=== PATIENT | female | born 1985 | race African-American/Black ===

== ENCOUNTER 2018-11-25 21:40 | Emergency (ER) | payer OTHER, SELFPAY ==
[~2018-11-25] VITALS: Ht 157.5 cm; Wt 81.6 kg
[2018-11-25 21:40] VITALS: BP 159/74
[~2018-11-25 21:40] MED LIST: BECL8.7H NS; BUDE10.2 IH; ESOM40CA PO; GABA300C18 PO; LUBI8CAP4 PO; METH10TA4 PO; OLOP2.5D OP
[2018-11-25 22:06] LABS: BILIRUBIN,URINE NEGATIVE (NEG); CLARITY,URINE CLEAR; COLOR,URINE YELLOW; NITRITE,URINE NEGATIVE (NEG); PROTEIN,URINE NEGATIVE (NEG-TRACE); UROBILINOGEN,URINE 0.2 mg/dL (0.2 mg/dL)
[2018-11-25 22:12] LABS: BASO # 0.1 x10^3/uL (0.0-0.2); BASO % 1 % (0-3); EOS # 0.1 x10^3/uL (0.0-0.7); EOS % 1 % (0-3); HEMATOCRIT 39.8 % (36.0-47.0); HEMOGLOBIN 13.2 g/dL (12.0-15.5); LYMPH # 1.5 x10^3/uL (1.0-4.8); LYMPH % 18 % (24-48); MEAN CORPUSCULAR HEMOGLOBIN 29 pg (25-35); MEAN CORPUSCULAR HGB CONC 33 g/dL (31-37); MEAN CORPUSCULAR VOLUME 88 fL (79-100); MONO # 0.7 x10^3/uL (0.0-1.1); MONO % 8 % (0-9); NEUT # 6.1 x10^3uL (1.8-7.7); NEUT % 72 % (31-73); PLATELET COUNT 313 x10^3/uL (140-400); RED BLOOD COUNT 4.51 x10^6/uL (3.50-5.40); RED CELL DISTRIBUTION WIDTH 13.5 % (11.5-14.5); WHITE BLOOD COUNT 8.4 x10^3/uL (4.0-11.0)
[2018-11-25 22:13] LABS: BARBITURATES NEG (NEG); BENZODIAZEPINES NEG (NEG); CANNABINOIDS NEG (NEG); COCAINE NEG (NEG); METHADONE NEG (NEG); OPIATES NEG (NEG); PHENCYCLIDINE NEG (NEG)
[2018-11-25 22:15] LABS: AMPHETAMINE/METHAMPHETAMINE POS (NEG)
[2018-11-25 22:19] LABS: SQUAMOUS EPITHELIAL CELL,UR FEW /LPF
[2018-11-25 22:20] LABS: CALCIUM 9.8 mg/dL (8.5-10.1); CREATININE 0.9 mg/dL (0.6-1.0); GFR 88.4; POTASSIUM 3.4 mmol/L (3.5-5.1)
[2018-11-25 22:20] LABS: BACTERIA,URINE FEW /HPF (0-FEW); RBC,URINE 0 /HPF (0-2)
[2018-11-25 22:21] LABS: HYALINE CASTS, URINE MODERATE /HPF; WBC,URINE OCC /HPF (0-4)
--- NOTE | 2018-11-26 01:19 | PHYS DOC ---
Past Medical History Past Medical History: Asthma, GERD, IBS Additional Past Medical Histor: eczema, narcolepsy, celiac Past Surgical History: Other Additional Past Surgical Histo: beth fundoplication, ankle replacement, nasal surgery, oral surgery Alcohol Use: Occasionally Drug Use: None Adult General Chief Complaint Chief Complaint: ALTERED MENTAL STATUS HPI HPI Patient is a 33 year old female presents with concern for abnormal behavior per her fianc. Patient was acting erratically earlier in the day and made statements that were concerning to her fianc. She asked her fianc if he wanted to see her kill herself. She did not threaten to kill herself or have a specific plan. Patient's fianc states that she had also drank wine earlier in the evening prior to making those statements. She reportedly, she has been under significant stress at work, at home has also been preoccupied with health concerns that she is trying to conceive. Patient has struggled with weight loss and is on phentermine and has had little's sleep in the past 2-3 days. No reported homicidal ideation, drug abuse. No prior psychiatric admissions. No significant medical illnesses.[] Review of Systems Review of Systems ROS as per HPI All other systems were reviewed and found to be within normal limits, except as documented in this note. Allergies Allergies Allergies Coded Allergies Type Severity Reaction Last Updated Verified modafinil Allergy Intermediate excessive thirst 09/25/13 Yes Physical Exam Physical Exam Constitutional: Well developed, well nourished, no acute distress, non-toxic appearance. [] HENT: Normocephalic, atraumatic, bilateral external ears normal, oropharynx moist, no oral exudates, nose normal. [] Eyes: PERRLA, EOMI, conjunctiva normal, no discharge. [] Neck: Normal range of motion, no tenderness, supple, no stridor. [] Cardiovascular:Heart rate regular rhythm, no murmur [] Lungs & Thorax: Bilateral breath sounds clear to auscultation [] Abdomen: Bowel sounds normal, soft, no tenderness. [] Skin: Warm, dry, no erythema, no rash. [] Back: No tenderness. [] Extremities: No tenderness, no cyanosis, no clubbing, ROM intact, no edema. [] Neurologic: Alert and oriented, CN 2-12, normal motor function, normal sensory function, no focal deficits noted. [] Psychologic: Affect, incongruent with mood. Bizarre and attention seeking behavior, yelling at TV, fake seizures only when examiner is in room, no HI/SI.[] Current Patient Data Vital Signs Vital Signs Date Time Temp Pulse Resp B/P (MAP) Pulse Ox O2 Delivery O2 Flow Rate FiO2 11/25/18 21:40 98.6 92 18 159/74 (102) 98 Room Air 98.6 Lab Values Laboratory Tests Test 11/25/18 21:45 11/25/18 22:00 11/25/18 22:01 11/25/18 22:14 Urine Collection Type Unknown Urine Color Yellow Urine Clarity Clear Urine pH 6.0 Urine Specific [place] 1.020 Urine Protein Negative mg/dL (NEG-TRACE) Urine Glucose (UA) Negative mg/dL (NEG) Urine Ketones (Stick) >=80 mg/dL (NEG) Urine Blood Negative (NEG) Urine Nitrite Negative (NEG) Urine Bilirubin Negative (NEG) Urine Urobilinogen Dipstick 0.2 mg/dL (0.2 mg/dL) Urine Leukocyte Esterase Negative (NEG) Urine RBC 0 /HPF (0-2) Urine WBC Occ /HPF (0-4) Urine Squamous Epithelial Cells Few /LPF Urine Bacteria Few /HPF (0-FEW) Urine Hyaline Casts Moderate /HPF Urine Mucus Mod /LPF Urine Opiates Screen Neg (NEG) Urine Methadone Screen Neg (NEG) Urine Barbiturates Neg (NEG) Urine Phencyclidine Screen Neg (NEG) Urine Amphetamine/Methamphetamine Pos (NEG) Urine Benzodiazepines Screen Neg (NEG) Urine Cocaine Screen Neg (NEG) Urine Cannabinoids Screen Neg (NEG) Urine Ethyl Alcohol Neg (NEG) White Blood Count 8.4 x10^3/uL (4.0-11.0) Red Blood Count 4.51 x10^6/uL (3.50-5.40) Hemoglobin 13.2 g/dL (12.0-15.5) Hematocrit 39.8 % (36.0-47.0) Mean Corpuscular Volume 88 fL (79-100) Mean Corpuscular Hemoglobin 29 pg (25-35) Mean Corpuscular Hemoglobin Concent 33 g/dL (31-37) Red Cell Distribution Width 13.5 % (11.5-14.5) Platelet Count 313 x10^3/uL (140-400) Neutrophils (%) (Auto) 72 % (31-73) Lymphocytes (%) (Auto) 18 % (24-48) L Monocytes (%) (Auto) 8 % (0-9) Eosinophils (%) (Auto) 1 % (0-3) Basophils (%) (Auto) 1 % (0-3) Neutrophils # (Auto) 6.1 x10^3uL (1.8-7.7) Lymphocytes # (Auto) 1.5 x10^3/uL (1.0-4.8) Monocytes # (Auto) 0.7 x10^3/uL (0.0-1.1) Eosinophils # (Auto) 0.1 x10^3/uL (0.0-0.7) Basophils # (Auto) 0.1 x10^3/uL (0.0-0.2) Sodium Level 138 mmol/L (136-145) Potassium Level 3.4 mmol/L (3.5-5.1) L Chloride Level 101 mmol/L (98-107) Carbon Dioxide Level 26 mmol/L (21-32) Anion Gap 11 (6-14) Blood Urea Nitrogen 8 mg/dL (7-20) Creatinine 0.9 mg/dL (0.6-1.0) Estimated GFR (Cockcroft-Gault) 88.4 Glucose Level 106 mg/dL (70-99) H Calcium Level 9.8 mg/dL (8.5-10.1) Ethyl Alcohol Level < 10 mg/dL (0-10) POC Urine HCG, Qualitative Hcg negative (Negative) Glucose (Fingerstick) 90 mg/dL (70-99) Laboratory Tests 11/25/18 22:00 Laboratory Tests 11/25/18 22:00 EKG EKG [] Radiology/Procedures Radiology/Procedures [] Course & Med Decision Making Course & Med Decision Making Pertinent Labs and Imaging studies reviewed. (See chart for details) [Labs reviewed, PAT member consulted. Patient voluntarily controls her behavior mood depending on republican present in the room. No HI/SI. Patient does not meet criteria for involuntary confinement is requesting discharge home. Outpatient resources provided. Precautions reviewed.] Dragon Disclaimer Dragon Disclaimer This electronic medical record was generated, in whole or in part, using a voice recognition dictation system. Departure Departure Impression: Primary Impression: Behavior concern in adult Disposition: 01 HOME, SELF-CARE Condition: IMPROVED Referrals: NO PCP (PCP) Patient Instructions: Mood Disorders Additional Instructions: Please follow up with your PCP and outpatient mental services. GLADIS JOSEPH DO November 26, 2018 01:19
== END 2018-11-26 01:50 | disposition home or self-care (01) ==
LOC: ER 21:40
DX: F98.9 Unspecified behavioral and emotional disorders with onset usually occurring in childhood and adolescence (principal); J45.909 Unspecified asthma, uncomplicated; K21.9 Gastro-esophageal reflux disease without esophagitis; Z96.669 Presence of unspecified artificial ankle joint; Z88.8 Allergy status to other drugs, medicaments and biological substances
CPT/HCPCS: 36415; 80048; 80307; 81001; 81025; 82962; 85025; 99284; G0480